=== PATIENT | female | born 1955 | race Caucasian/White ===

== ENCOUNTER 2021-02-07 17:23 | Emergency (ER) | payer MEDICARE ==
[~2021-02-07] VITALS: Ht 157.5 cm; Wt 113.6 kg
[2021-02-07] MEDS ORDERED: HYDROcodone/APAP 5/325MG 1 TAB TABLET PO ONE (18:00)
--- NOTE | 2021-02-07 18:14 | PHYS DOC ---
Past Medical History Past Medical History: A-Fib, Anxiety, CHF, Depression, Hypertension, Kidney Stone, Other Additional Past Medical Histor: DJD,chronic pain BLE, mostly right LE pain for a few months Past Surgical History: Other Additional Past Surgical Histo: bunion repair right foot Smoking Status: Never Smoker Alcohol Use: None Drug Use: Methamphetamine General Adult EDM: Chief Complaint: MECHANICAL FALL HPI: HPI: Patient is a 65 year old female who presents with was walking with her cane and tripped and fell outside landing on concrete this afternoon landing on her left side. She has abrasion to her left forehead, left lower and upper side of her lips swelling and bruising, left elbow pain and abrasion, left knee pain and abrasion. She states EMS was called and they helped her up. She states she had a hold onto them to help her walk to the car. Patient denies back pain, neck pain, LOC, dizziness, headache, numbness or tingling, focal weakness, nausea, vomiting, chest pain, vision loss or changes, shortness of breath, abdominal pain. She states that she is on Eliquis. She rates her pain to her face an 8 out of 10. Review of Systems: Review of Systems: Constitutional: Denies fever or chills. [] Eyes: Denies change in visual acuity. [] HENT: Denies nasal congestion or sore throat. [] Respiratory: Denies cough or shortness of breath. [] Cardiovascular: Denies chest pain or edema. [] GI: Denies abdominal pain, nausea, vomiting, bloody stools or diarrhea. [] : Denies dysuria. [] Musculoskeletal: Denies back pain. + Right knee joint pain. + Right elbow [] Integument: Denies rash. + Forehead abrasion. + Right elbow abrasion. + Right knee abrasion. [] Neurologic: + Facial pain over forehead where abrasions are located. Denies headache, focal weakness or sensory changes. [] Endocrine: Denies polyuria or polydipsia. [] Lymphatic: Denies swollen glands. [] Psychiatric: Denies depression or anxiety. [] Heart Score: C/O Chest Pain: N/A Risk Factors: Risk Factors: DM, Current or recent (<one month) smoker, HTN, HLP, family history of CAD, obesity. Risk Scores: Score 0 - 3: 2.5% MACE over next 6 weeks - Discharge Home Score 4 - 6: 20.3% MACE over next 6 weeks - Admit for Clinical Observation Score 7 - 10: 72.7% MACE over next 6 weeks - Early Invasive Strategies Current Medications: Current Medications Medications (Trade) Dose Ordered Sig/Bharati Start Time Stop Time Status Last Admin Dose Admin Acetaminophen/ Hydrocodone Bitart (Lortab 5/325) 1 tab 1X ONCE 02/07/21 18:00 02/07/21 18:01 DC Allergies: Allergies: Allergies Coded Allergies Type Severity Reaction Last Updated Verified No Known Drug Allergies 05/27/15 No Physical Exam: PE: Constitutional: Well developed, well nourished, no acute distress, non-toxic appearance. [] HENT: Normocephalic, atraumatic, bilateral external ears normal, oropharynx moist, no oral exudates, nose normal. [] Eyes: PERRLA, EOMI, conjunctiva normal, no discharge. [] Neck: Normal range of motion, no tenderness, supple, no stridor. [] Cardiovascular:Heart rate regular rhythm, no murmur [] Lungs & Thorax: Bilateral breath sounds clear to auscultation [] Abdomen: Bowel sounds normal, soft, no tenderness, no masses, no pulsatile masses. [] Skin: Warm, dry, no erythema, no rash. Right forehead abrasion. Right elbow abrasion. Right knee abrasion. Right lower and upper lip bruising and swelling 1-2+ [] Back: No tenderness, no CVA tenderness. [] Extremities: Right knee tenderness, no cyanosis, no clubbing, ROM intact, no edema. [] Neurologic: Alert and oriented X 3, normal motor function, normal sensory function, no focal deficits noted. [] Psychologic: Affect normal, judgement normal, mood normal. [] Current Patient Data: Vital Signs: Vital Signs Date Time Temp Pulse Resp B/P (MAP) Pulse Ox O2 Delivery O2 Flow Rate FiO2 02/07/21 17:45 98.2 74 18 168/91 (116) 92 Room Air 98.2 EKG: EKG: [] Radiology/Procedures: Radiology/Procedures: [][facility] [address] [place] [address] IMAGING REPORT Signed PATIENT: VANESSA PHILLIP ACCOUNT: [id number] : 1955 LOCATION: ER AGE: 65 SEX: F EXAM STATUS: REG ER ORD. PHYSICIAN: CLINTON STAUFFER APRN REASON: FALL, ABRASIONS, PAIN PROCEDURE: CT HEAD AND CERVICAL SPINE WO Exam: CT head, maxillofacial and cervical spine INDICATION: Fall, abrasion TECHNIQUE: Sequential axial images through the head, face and cervical spine were obtained without the administration of IV contrast. Comparisons: None FINDINGS: Head: No focal parenchymal lesion or hemorrhage is identified. There is no midline shift or sulcal effacement. Patchy evidence in the periventricular white matter. No acute vascular territory infarction is identified. Boateng-white distinction is preserved. The ventricular system is within normal limits without compression hydrocephalus. The basal cisterns are well maintained. No acute fractures. Extra cranial soft tissue scalp contusion/hematoma overlying the left frontal region. Face: Mild mucosal thickening noted in the right maxillary sinus and right anterior ethmoid air cells. Cervical spine: Straightening of cervical spine which may positional. Vertebral body heights are well-maintained. Fracture to the cervical spine is not identified. Multilevel spondylotic change in cervical spine with degenerative disc disease greatest at C5-C6 and C6-C7. Visualized paraspinal soft tissues are unremarkable. IMPRESSION: 1. Extra soft tissue scalp contusion/hematoma overlying the left frontal region without underlying osseous or intracranial abnormality. 2. Negative CT C-spine for acute traumatic injury. Exposure: One or more of the following in the visualized dose reduction techniques were utilized for this examination: 1. Automated exposure control 2. Adjustment of the MA and/or KV according to patient size Use of iterative of reconstructive technique Electronically signed by: Montana Stein MD (02/07/2021 6:37 PM) [facility] DICTATED and SIGNED BY: MONTANA STEIN MD DATE: 02/07/21 [id number] Impression: [facility] [address] [place] [address] IMAGING REPORT Signed PATIENT: VANESSA PHILLIP ACCOUNT: [id number] : 1955 LOCATION: ER AGE: 65 SEX: F EXAM STATUS: REG ER ORD. PHYSICIAN: CLINTON STAUFFER APRN REASON: FALL, PAIN, ABRASION PROCEDURE: KNEE LEFT 4V Exam: Left knee 4 views INDICATION: Fall, pain, abrasion TECHNIQUE: Frontal, lateral, oblique and sunrise views of the left knee Comparisons: None FINDINGS: Diffuse osteopenia. Mild soft tissue swelling at the knee anteriorly. No suprapatellar effusion. Moderate tricompartmental osteoarthritic change at the knee. No acute or healed fractures. IMPRESSION: No acute osseous abnormality of the left knee. Electronically signed by: Montana Stein MD (02/07/2021 6:51 PM) [facility] DICTATED and SIGNED BY: MONTANA STEIN MD DATE: 02/07/[id number] 0 [facility] [address] [place], [place] [id number] IMAGING REPORT Signed PATIENT: VANESSA PHILLIP ACCOUNT: [id number] : 1955 LOCATION: ER AGE: 65 SEX: F EXAM STATUS: REG ER ORD. PHYSICIAN: CLINTON STAUFFER APRN REASON: FALL, PAIN, ABRASION PROCEDURE: HIP RIGHT 2V WITH PELVIS Exam: Right hip 2 views INDICATION: Fall, pain TECHNIQUE: Frontal view of the pelvis with frontal and frog-leg lateral views of the right hip Comparisons: None FINDINGS: Diffuse osteopenia. Right hip arthroplasty changes are noted. No acute or healed fractures. Joint spaces are well-maintained. Soft tissues are unremarkable. IMPRESSION: Diffuse osteopenia without acute osseous abnormality identified. If the Patient is acutely unable to bear weight cross-sectional imaging to rule out occult fracture is recommended. Electronically signed by: Montana Stein MD (02/07/2021 6:54 PM) [facility] DICTATED and SIGNED BY: MONTANA STEIN MD DATE: 02/07/[id number] 0 Course & Med Decision Making: Course & Med Decision Making Pertinent Labs and Imaging studies reviewed. (See chart for details) See HPI. Alert and oriented x4. Ambulates with a cane. Speaks in full clear sentences. Follows all commands. Cap refill less than 2 seconds. PERRLA. Radial and pedal pulses are strong and present. Bleeding is controlled. Abrasions are cleaned with chlorhexidine. Patient is moving all extremities at all joints equally without any location. There is no deformities to the patient's body. Tenderness over the patient's left side of the forehead, right lip. No focal bony spinal tenderness. Full range of motion of her neck. Abdomen is soft and nontender. She has an abrasion to the left knee but there is no swelling, bruising or deformity. She is able to extend and bend her knees and elbows. No other bruising or abrasions or lacerations are seen the patient's body. She did not bite her tongue and there is no damage to her teeth . Wounds were cleaned with chlorhexidine and saline. Antibiotic ointment is placed over abrasions. Patient has a history of hypertension, kidney stone, DJD, chronic bilateral lower extremity pain, depression, CHF, anxiety, A. fib. Patient refusing tetanus shot. She is educated that tetanus can cause her a lot of pain, serious illness and or disability and . She states her understanding still refuses a tetanus shot. Patient is also refusing her left elbow x-ray and states that she does not feel that she needs it and there is just an abrasion. Patient was able to ambulate with her cane without difficulty. Patient is disc harged home to follow-up with orthopedic or her primary care provider. [] Syed Disclaimer: Syed Disclaimer: This electronic medical record was generated, in whole or in part, using a voice recognition dictation system. Departure Departure Impression: Primary Impression: Head injury Qualified Codes: S09.90XA - Unspecified injury of head, initial encounter Additional Impressions: Facial abrasion Qualified Codes: S00.81XA - Abrasion of other part of head, initial encounter Knee pain, left Qualified Codes: M25.562 - Pain in left knee Knee abrasion Qualified Codes: S80.212A - Abrasion, left knee, initial encounter Elbow abrasion Qualified Codes: S50.312A - Abrasion of left elbow, initial encounter Elbow pain, left Fall Qualified Codes: W19.XXXA - Unspecified fall, initial encounter Disposition: 01 DC HOME SELF CARE/HOMELESS Condition: STABLE Referrals: NO PCP (PCP) JO ANN,DIAN N MD Patient Instructions: Abrasions, Contusion, Head Injury, Adult Additional Instructions: Follow-up with a primary care provider if needed. I have also referred you to an orthopedic doctor. Watch for signs of infection. Keep wounds clean and you can put antibiotic ointment over them. Take Tylenol for your pain. If begin vomiting, having a severe headache, dizziness or syncope return to the emergency room. Remember since she refused the tetanus shot that there is risk of developing tetanus of which could result in disability, severe illness or . Scripts Hydrocodone Bit/Acetaminophen (HYDROCODONE-APAP 5-325 ) 1 Tab Tablet 1 TAB PO PRN Q6HRS PRN for PAIN, #5 TAB 0 Refills Prov: CLINTON STAUFFER APRN 02/07/21 CLINTON STAUFFER APRN Feb 07, 2021 18:14
[2021-02-07] MEDS ORDERED: DIPH,PERTUSS(ACELL),TET VAC/PF 0.5 ML SYRINGE. VAX IM ONE (18:15)
--- NOTE | 2021-02-07 18:39 | RAD ---
Exam: CT head, maxillofacial and cervical spine INDICATION: Fall, abrasion TECHNIQUE: Sequential axial images through the head, face and cervical spine were obtained without th e administration of IV contrast. Comparisons: None FINDINGS: Head: No focal parenchymal lesion or hemorrhage is identified. There is no midline shift or sulcal effaceme nt. Patchy evidence in the periventricular white matter. No acute vascular territory infarction is identi fied. Boateng-white distinction is preserved. The ventricular system is within normal limits without compression hydrocephalus. The basal cisterns are well maintained. No acute fractures. Extra cranial soft tissue scalp contusion/hematoma overlying the left frontal reg ion. Face: Mild mucosal thickening noted in the right maxillary sinus and right anterior ethmoid air cells. Cervical spine: Straightening of cervical spine which may positional. Vertebral body heights are well-maintained. Fracture to the cervical spine is not identified. Multilevel spondylotic change in cervical spine with degenerative disc disease greatest at C5-C6 and C6-C7. Visualized paraspinal soft tissues are unremarkable. IMPRESSION: 1. Extra soft tissue scalp contusion/hematoma overlying the left frontal region without underlying o sseous or intracranial abnormality. 2. Negative CT C-spine for acute traumatic injury. Exposure: One or more of the following in the visualized dose reduction techniques were utilized for this examination: 1. Automated exposure control 2. Adjustment of the MA and/or KV according to patient size Use of iterative of reconstructive technique Electronically signed by: Montana Barajas MD (02/07/2021 6:37 PM) [facility]
--- NOTE | 2021-02-07 18:54 | RAD ---
Exam: Left knee 4 views INDICATION: Fall, pain, abrasion TECHNIQUE: Frontal, lateral, oblique and sunrise views of the left knee Comparisons: None FINDINGS: Diffuse osteopenia. Mild soft tissue swelling at the knee anteriorly. No suprapatellar effusion. Mode rate tricompartmental osteoarthritic change at the knee. No acute or healed fractures. IMPRESSION: No acute osseous abnormality of the left knee. Electronically signed by: Montana Barajas MD (02/07/2021 6:51 PM) [facility]
--- NOTE | 2021-02-07 18:57 | RAD ---
Exam: Right hip 2 views INDICATION: Fall, pain TECHNIQUE: Frontal view of the pelvis with frontal and frog-leg lateral views of the right hip Comparisons: None FINDINGS: Diffuse osteopenia. Right hip arthroplasty changes are noted. No acute or healed fractures. Joint spa john are well-maintained. Soft tissues are unremarkable. IMPRESSION: Diffuse osteopenia without acute osseous abnormality identified. If the Patient is acutely unable to bear weight cross-sectional imaging to rule out occult fracture is recommended. Electronically signed by: Montana Barajas MD (02/07/2021 6:54 PM) [facility]
[2021-02-07] MEDS ORDERED: HYDR-2761 PO (19:03)
[2021-02-07] MEDS ORDERED: NEOMY/BACITR/POLYMYXIN OINT PACKET. TP ONE (19:15)
[2021-02-07 21:00] VITALS: BP 168/91
== END 2021-02-07 21:00 | disposition home or self-care (01) ==
LOC: ER 17:23
DX: S00.81XA Abrasion of other part of head, initial encounter (principal); S80.212A Abrasion, left knee, initial encounter; S50.312A Abrasion of left elbow, initial encounter; M25.551 Pain in right hip; I11.0 Hypertensive heart disease with heart failure; I50.9 Heart failure, unspecified; G89.29 Other chronic pain; I48.91 Unspecified atrial fibrillation; M85.88 Other specified disorders of bone density and structure, other site; Z96.641 Presence of right artificial hip joint; W01.0XXA Fall on same level from slipping, tripping and stumbling without subsequent striking against object, initial encounter; Y93.01 Activity, walking, marching and hiking; Y92.89 Other specified places as the place of occurrence of the external cause; Y99.8 Other external cause status
CPT/HCPCS: 70450; 70486; 72125; 73502; 73564; 99285-25